=== PATIENT | female | born 1955 | race Asian ===

== ENCOUNTER 2023-10-17 11:50 | Day surgery (SDC) | payer OTHER ==
[~2023-10-17] VITALS: Ht 157.5 cm; Wt 65.8 kg
[~2023-10-17 11:50] MED LIST: ATOR10TA PO; LOSA25TA15 PO
[2023-10-17] MEDS ORDERED: DexAMETHasone SOD PHOS 4 MG/1ML SDV INJ ONE (12:03)
[2023-10-17] MEDS ORDERED: BUPIVACAINE 0.25% INJ 50ML VIAL ONE (12:03)
[2023-10-17] MEDS ORDERED: LIDOCAINE 1% (LOCAL ANESTH.) PF 5ml SDV ONE (12:05)
[2023-10-17] MEDS ORDERED: ceFAZolin 2 GM/D5W100ml 100 ML IV ONE (12:06)
[2023-10-17] MEDS ORDERED: MEPERIDINE HCL (25 MG/ML) 1ML VIAL ONE (12:54)
[2023-10-17] MEDS ORDERED: MIDAZOLAM HCL 2MG/2ML 2ml VIAL (1mg/ml) ONE (12:54)
[2023-10-17] MEDS ORDERED: ePHEDrine SULFATE 50 MG/ML AMP IV PRN (13:30)
[2023-10-17] MEDS ORDERED: HYDROmorphone HCL 2 MG/ML VL/or syr IV PRN ×2 (13:30→15:30)
[2023-10-17] MEDS ORDERED: MIDAZOLAM HCL 2MG/2ML 2ml VIAL (1mg/ml) IV PRN (13:30)
[2023-10-17] MEDS ORDERED: ONDANSETRON HCL 4 MG/2 ML VIAL IV PRN (13:30)
[2023-10-17] MEDS ORDERED: MORPHINE SULFATE 4 MG/ML SYR/VIAL IV PRN (13:30)
[2023-10-17] MEDS ORDERED: KETOROLAC TROMETH 30 MG/ML 1ML VIAL IV ONE (13:30)
[2023-10-17] MEDS ORDERED: LABETALOL HCL 5 MG/ML 4ML SYRINGE IV PRN (13:30)
[2023-10-17] MEDS ORDERED: DexAMETHasone SOD PHOS 10MG/1ML VIAL INJ ONE (14:33)
[2023-10-17 14:45] VITALS: PULSE 64; RESP 12; TEMP 98.4; O2SAT 94
[2023-10-17] MEDS: HYDROmorphone HCL 2 MG/ML VL/or syr IV ONE (15:24)
[2023-10-17 15:50] VITALS: BP 158/90; PULSE 70; RESP 14; O2SAT 95
[2023-10-17] MEDS ORDERED: ONDANSETRON HCL 4 MG/2 ML VIAL IV ONE (23:00)
[2023-10-17] MEDS ORDERED: PHENYLEPHRINE HCL 10 MG/ML VL IV ONE (23:00)
== END 2023-10-17 16:30 | disposition home or self-care (01) ==
LOC: SUR 11:50 → EDUNIT# 14:30 → SUR 16:30
PROVIDERS: ATTEND Orthopaedic Surgery Sports Medicine
DX: S52.571A Other intraarticular fracture of lower end of right radius, initial encounter for closed fracture (principal); I10 Essential (primary) hypertension; E78.5 Hyperlipidemia, unspecified; Z91.041 Radiographic dye allergy status; Z79.899 Other long term (current) drug therapy; X58.XXXA Exposure to other specified factors, initial encounter; Y93.89 Activity, other specified; Y92.89 Other specified places as the place of occurrence of the external cause; Y99.8 Other external cause status; Z90.710 Acquired absence of both cervix and uterus; Z98.890 Other specified postprocedural states
CPT/HCPCS: 25609; 73110; 76000; C1713; J1100; J1170; J2175; J2250; J2371; J2405; J3490